=== PATIENT | female | born 1985 | race Caucasian/White ===

== ENCOUNTER 2020-12-03 06:13 | Inpatient (IN) | payer OTHER ==
[~2020-12-03] VITALS: Ht 165.1 cm; Wt 85.3 kg
[~2020-12-03 06:13] MED LIST: LACT1CAP72 PO; PREN-147 PO
[2020-12-03] MEDS ORDERED: ROPIVACAINE 0.2% 100ML VIAL 100 ML EP SCH (07:15)
[2020-12-03] MEDS ORDERED: LACTATED RINGERS 500 ML 500 ML IV PRN (07:15)
[2020-12-03] MEDS ORDERED: EPHEDRINE SULFATE 50 MG/ML AMPULE IVP PRN (07:15)
[2020-12-03] MEDS ORDERED: NALOXONE HCL 0.4 MG/1 ML ML IV PRN (07:15)
[2020-12-03 07:21] LABS: HEMATOCRIT 39.2 % (36-48); MEAN CORPUSCULAR HEMOGLOBIN 27.8 pg (27.0-33.0); MEAN CORPUSCULAR HGB CONC 32.1 g/dL (32.0-36.0); MEAN CORPUSCULAR VOLUME 86.5 fL (79-99); RED BLOOD CELL COUNT(AUTO) 4.53 MIL/uL (4.00-5.50); RED CELL DISTRIBUTION WIDTH 14.9 % (11.0-15.5); WHITE BLOOD COUNT (AUTO) 10.7 K/uL (4.8-10.8)
[2020-12-03 07:35] LABS: BILIRUBIN,URINE Negative (NEGATIVE); COLOR,URINE Yellow (YELLOW); GLUCOSE, URINE (UA) Negative (NEGATIVE); KETONES,URINE Negative (NEGATIVE); LEUKOCYTE ESTERASE ,URINE Trace (NEGATIVE); NITRATE,URINE Negative (NEGATIVE); OCCULT BLOOD,URINE Negative (NEGATIVE); PH,URINE 5.5 (5.0-8.0); PROTEIN,URINE Negative (NEGATIVE); UROBILINOGEN,URINE 0.2 mg/dL (0.2-1.0)
[2020-12-03 07:38] LABS: APPEARANCE,URINE CLEAR (CLEAR)
[2020-12-03 07:46] LABS: RBC,URINE 0-1 /HPF (0-1)
[2020-12-03 07:49] LABS: BACTERIA,URINE None Seen /HPF (None Seen); SQUAMOUS EPITHELIAL CELL,UR Rare /HPF (0-2)
[2020-12-03 08:43] LABS: RAPID PLASMA REAGIN NONREACTIVE (NONREACTIVE)
[2020-12-03] MEDS ORDERED: OXYTOCIN-LR 20 UNITS/1000 ML 1,000 ML IV SCH ×2 (11:45→14:15)
[2020-12-03] MEDS: OXYTOCIN-LR 20 UNITS/1000 ML 1,000 ML IV SCH ×2 (11:45→23:03)
[2020-12-03] MEDS: LACTATED RINGERS 1000ML 1,000 ML IV PRN (11:50)
[2020-12-03] MEDS ORDERED: ACETAMINOPHEN-CODEINE 300/30MG TAB PO PRN (14:15)
[2020-12-03] MEDS ORDERED: WITCH HAZEL 1 PAD TP PRN (14:15)
[2020-12-03] MEDS ORDERED: BENZOCAINE/LANOLIN/ALOE VERA 60 ML AEROSOL TP PRN (14:15)
[2020-12-03] MEDS ORDERED: MEASLES/MUMPS/RUBELLA VACCINE, LIVE 0.5 ML/VIAL SQ PRN (14:15)
[2020-12-03] MEDS ORDERED: ACETAMINOPHEN 325 MG TAB PO PRN (14:15)
[2020-12-03] MEDS ORDERED: DIPH,PERTUSS(ACELL),TET VAC/PF 0.5 ML VIAL IM PRN (14:15)
[2020-12-03] MEDS ORDERED: LANOLIN 30GM OINTMENT TP PRN (14:15)
[2020-12-03 16:40] VITALS: BP 120/67
[2020-12-03] MEDS: DOCUSATE SODIUM 100 MG CAP PO SCH (20:23)
[2020-12-03 20:24] VITALS: BP 117/64
[2020-12-03] MEDS: IBUPROFEN 600 MG TABLET PO PRN (20:24)
[2020-12-03] MEDS ORDERED: FLU VACC QS2020-21(6MOS UP)/PF 60 MCG/0.5 ML ML IM ONE (21:00)
[2020-12-03 23:34] VITALS: BP 131/84
[2020-12-04 03:40] VITALS: BP 114/67
[2020-12-04] MEDS: IBUPROFEN 600 MG TABLET PO PRN ×2 (03:40→09:50)
[2020-12-04 07:10] VITALS: BP 129/72
[2020-12-04] MEDS ORDERED: FLU VACC QS2020-21(6MOS UP)/PF 60 MCG/0.5 ML ML IM ONE (08:38)
[2020-12-04] MEDS: DOCUSATE SODIUM 100 MG CAP PO SCH (08:43)
[2020-12-04 10:13] LABS: HEPATITIS Bs ANTIGEN SCREEN P Negative (Negative)
[2020-12-04 11:15] VITALS: BP 107/62
== END 2020-12-04 14:20 | disposition home or self-care (01) | DRG 807 ==
LOC: LDH 06:13 → WSH 16:40 → PREOBSVTOIN 12-06 06:11
PROVIDERS: ADMIT Specialist; ATTEND Specialist
PROC: 10E0XZZ Delivery of Products of Conception, External Approach (ICD-10-PCS; principal; 2020-12-03)
PROC: 10907ZC Drainage of Amniotic Fluid, Therapeutic from Products of Conception, Via Natural or Artificial Opening (ICD-10-PCS; 2020-12-03)
PROC: 3E0R3BZ Introduction of Anesthetic Agent into Spinal Canal, Percutaneous Approach (ICD-10-PCS; 2020-12-03)
PROC: 00HU33Z Insertion of Infusion Device into Spinal Canal, Percutaneous Approach (ICD-10-PCS; 2020-12-03)
PROC: 3E0234Z Introduction of Serum, Toxoid and Vaccine into Muscle, Percutaneous Approach (ICD-10-PCS; 2020-12-03)
PROC: 3E0134Z Introduction of Serum, Toxoid and Vaccine into Subcutaneous Tissue, Percutaneous Approach (ICD-10-PCS; 2020-12-03)
PROC: 3E02340 Introduction of Influenza Vaccine into Muscle, Percutaneous Approach (ICD-10-PCS; 2020-12-03)
DX: O80 Encounter for full-term uncomplicated delivery (principal); Z37.0 Single live birth; Z3A.39 39 weeks gestation of pregnancy; Z23 Encounter for immunization; Z88.2 Allergy status to sulfonamides
CPT/HCPCS: 36415; 81001; 85027; 86592; 86701; 86850; 86900; 86901; 87340; 87390; 90715; A4314; G0378; J2590; J2795; J7120; Q2035